=== PATIENT | male | born 1990 | race Caucasian/White ===

== ENCOUNTER 2021-03-08 14:59 | Emergency (ER) | payer BC ==
[2021-03-08] MEDS ORDERED: Ketorolac 30 MG/ML SDV IVPUSH ONE (16:59)
--- NOTE | 2021-03-08 17:06 | EDM.PDOC ---
ED HPI GENERAL MEDICAL PROBLEM - General Chief Complaint: Abdominal Pain Stated Complaint: SIDE PAIN Time Seen by Provider: 03/08/21 16:33 Source of Information: Reports: Patient History Limitations: Reports: No Limitations - History of Present Illness INITIAL COMMENTS - FREE TEXT/NARRATIVE: 31-year-old male presents the emergency department today with complaints of right upper abdominal discomfort. Patient states that this started yesterday shortly after lunch. He states that it is a squeezing type of pain that does come and go. He states that at breakfast yesterday morning he did have a inSelly sausage type of sandwich and then for lunch had chicken and rice. He states that he developed right upper quadrant abdominal pain with associated nausea shortly after lunch and has not eaten anything since. He states he was able to sleep throughout the night as the pain had decreased however he did get up and go to the gym and when he got home from the gym today he states the pain progressively worsened. He denies any recent fever, chills, vomiting. He states that he did have some nausea associated with the abdominal discomfort and some diarrhea. States he is otherwise healthy. He states he does vape on occasion. Right Upper Abdomen Pain Score (Numeric/FACES): 4 - Related Data Allergies Allergy/AdvReac Type Severity Reaction Status Date / Time No Known Allergies Allergy Verified 03/08/21 16:27 Home Meds: Home Meds Fish Oil/[place]-3 Fatty Acids [Fish Oil 1,000 MG] 1 cap PO BID 03/08/21 [History] Glucosam/Chond/Collagen/Hyalur [Glucosamine Chondroitin] 1 cap PO BID 03/08/21 [History] diphenhydrAMINE HCL [Benadryl] 50 mg PO BEDTIME 03/08/21 [History] Past Medical History HEENT History: Reports: Impaired Vision, Other (See Below) Other HEENT History: seasonal nose bleeds, stigmatism--night driving, computer use--wears eyeglasses. Cardiovascular History: Reports: Hypertension Other Cardiovascular History: takes no meds. Respiratory History: Reports: Bronchitis, Recurrent - Infectious Disease History Infectious Disease History: Reports: Chicken Pox, Novel Coronavirus - Past Surgical History Musculoskeletal Surgical History: Reports: Other (See Below) Other Musculoskeletal Surgeries/Procedures:: L) shoulder repair, L) shoulder kept dislocating. Social & Family History - Caffeine Use Caffeine Use: Reports: Coffee, Energy Drinks - Recreational Drug Use Recreational Drug Use: No ED ROS GENERAL - Review of Systems Review Of Systems: Comprehensive ROS is negative, except as noted in HPI. ED EXAM, GI/ABD - Physical Exam Exam: See Below Exam Limited By: No Limitations General Appearance: Alert, WD/WN, No Apparent Distress Ears: Normal External Exam, Hearing Grossly Normal Nose: Normal Inspection Throat/Mouth: Normal Inspection, Normal Lips, Normal Voice, No Airway Compromise Head: Atraumatic, Normocephalic Neck: Normal Inspection, Supple Respiratory/Chest: No Respiratory Distress, Lungs Clear, Normal Breath Sounds, No Accessory Muscle Use, Chest Non-Tender Cardiovascular: Normal Peripheral Pulses, Regular Rate, Rhythm, No Edema, No Murmur GI/Abdominal Exam: Normal Bowel Sounds, Soft, No Distention, Tender (Right upper quadrant) (Male) Exam: Deferred Rectal (Males) Exam: Deferred Back Exam: Normal Inspection, Full Range of Motion Extremities: Normal Inspection, Normal Range of Motion, Non-Tender, No Pedal Edema, Normal Capillary Refill Neurological: Alert, Oriented, Normal Cognition Psychiatric: Normal Affect Skin Exam: Warm, Dry, Intact, Normal Color, No Rash Lymphatic: No Adenopathy Course - Vital Signs Text/Narrative:: Stated above patient presents with right upper quadrant abdominal discomfort that started yesterday just after lunch with associated nausea. Physical exam reveals right upper quadrant abdominal tenderness with deep palpation. Will obtain lab studies to include a CBC, CMP, magnesium, C-reactive protein, lipase and a GGT. We will also obtain a right upper quadrant abdominal ultrasound to rule out gallbladder issues. We will also order 30 of Toradol IV for discomfort. Last Recorded V/S: Last Vital Signs Temp 98.4 F 03/08/21 16:25 Pulse 68 03/08/21 16:25 Resp 16 03/08/21 16:25 BP 176/103 H 03/08/21 16:25 Pulse Ox 99 03/08/21 16:25 - Orders/Labs/Meds Orders: Active Orders 24 hr Category Date Time Status Sodium Chloride 0.9% [Saline Flush] Med 03/08/21 16:59 Active 10 ml FLUSH ASDIRECTED PRN Saline Lock Insert [OM.PC] Stat Oth 03/08/21 16:59 Ordered Medication Orders Sodium Chloride (Sodium Chloride 0.9% 10 Ml Syringe) 10 ml FLUSH ASDIRECTED PRN PRN Reason: Keep Vein Open Last Admin: 03/08/21 20:06 Dose: 10 ml Documented by: [email or web address] Admin: 03/08/21 17:34 Dose: 10 ml Documented by: BK Labs: Laboratory Tests 03/08/21 03/08/21 03/08/21 Range/Units 17:00 17:00 17:00 WBC 9.84 H (4.23-9.07) K/mm3 RBC 6.61 H (4.63-6.08) M/mm3 Hgb 17.0 (13.7-17.5) gm/dl Hct 52.5 H (40.1-51.0) % MCV 79.4 (79.0-92.2) fl MCH 25.7 (25.7-32.2) pg MCHC 32.4 (32.2-35.5) g/dl RDW Std Deviation 43.0 (35.1-43.9) fL Plt Count 286 (163-337) K/mm3 MPV 10.8 (9.4-12.3) fl Neut % (Auto) 70.4 H (34.0-67.9) % Lymph % (Auto) 22.5 (21.8-53.1) % [place] % (Auto) 5.3 (5.3-12.2) % Eos % (Auto) 0.6 L (0.8-7.0) Baso % (Auto) 1.1 (0.1-1.2) % Neut # (Auto) 6.93 H (1.78-5.38) K/mm3 Lymph # (Auto) 2.21 (1.32-3.57) K/mm3 [place] # (Auto) 0.52 (0.30-0.82) K/mm3 Eos # (Auto) 0.06 (0.04-0.54) K/mm3 Baso # (Auto) 0.11 H (0.01-0.08) K/mm3 Sodium 139 (136-145) mEq/L Potassium 4.1 (3.5-5.1) mEq/L Chloride 103 (98-107) mEq/L Carbon Dioxide 26 (21-32) mEq/L Anion Gap 14.1 (5-15) BUN 16 (7-18) mg/dL Creatinine 1.6 H (0.7-1.3) mg/dL Est Cr Clr Drug Dosing 78.49 mL/min Estimated GFR (MDRD) 51 (>60) mL/min BUN/Creatinine Ratio 10.0 L (14-18) Glucose 92 (70-99) mg/dL Calcium 9.3 (8.5-10.1) mg/dL Magnesium 1.9 (1.8-2.4) mg/dL Total Bilirubin 0.8 (0.2-1.0) mg/dL GGT 46 (15-85) U/L AST 47 H (15-37) U/L ALT 59 (16-63) U/L Alkaline Phosphatase 59 (46-116) U/L C-Reactive Protein < 0.2 (<1.0) mg/dL Total Protein 8.5 H (6.4-8.2) g/dl Albumin 4.5 (3.4-5.0) g/dl Globulin 4.0 gm/dL Albumin/Globulin Ratio 1.1 (1-2) Lipase 108 (73-393) U/L Meds: Medications Generic Name Dose Route Start Last Admin Trade Name Freq PRN Reason Stop Dose Admin Sodium Chloride 10 ml 03/08/21 16:59 03/08/21 20:06 Sodium Chloride 0.9% 10 Ml Syringe FLUSH 10 ml ASDIRECTED PRN Administration Keep Vein Open Discontinued Medications Generic Name Dose Route Start Last Admin Trade Name Freq PRN Reason Stop Dose Admin Diatrizoate Meglum/Diatrizoate Sod 45 ml 03/08/21 19:54 03/08/21 20:01 Diatrizoate Meglumine/Diatrizoate Sodium 37% 120 Ml Bottle PO 03/08/21 19:55 1 bottle ONETIME ONE Administration Hydromorphone HCl 0.5 mg 03/08/21 18:30 03/08/21 18:50 Hydromorphone 0.5 Mg/0.5 Ml Syringe IVPUSH 03/08/21 18:31 0.5 mg ONETIME ONE Administration Sodium Chloride 1,000 mls @ 999 mls/hr 03/08/21 18:30 03/08/21 18:51 Normal Saline IV 03/08/21 19:30 999 mls/hr ONETIME ONE Administration Iopamidol 100 ml 03/08/21 19:54 03/08/21 20:06 Iopamidol 612 Mg/Ml 100 Ml Bottle IVPUSH 03/08/21 19:55 100 ml ONETIME ONE Administration Iopamidol 40 ml 03/08/21 19:55 03/08/21 20:06 Iopamidol 612 Mg/Ml 50 Ml Sdv IVPUSH 03/08/21 19:56 25 ml ONETIME ONE Administration Ketorolac Tromethamine 30 mg 03/08/21 16:59 03/08/21 17:31 Ketorolac 30 Mg/Ml Sdv IVPUSH 03/08/21 17:00 30 mg ONETIME ONE Administration - Re-Assessments/Exams Free Text/Narrative Re-Assessment/Exam: 03/08/21 18:27 Hematology reveals a WBC of 9.84, hemoglobin 17.0, hematocrit 52.5, platelet count 286 Chemistry reveals a sodium of 139, potassium 4.1, anion gap 14.1, BUN 16, creatinine 1.6, glucose 92, magnesium 1.9, GGT 46, AST 47, ALT 59, C-reactive protein 0.2 Radiologist impression Limited abdominal ultrasound: Pancreas is not completely seen. Visualized portion of the pancreas appears within normal limits. Liver shows no focal abnormality. Gallbladder contains no shadowing gallstones. No gallbladder wall thickening or biliary duct dilation is seen. Right kidney shows no hydronephrosis or mass and has a length of 12.2 cm. Proximal aorta measures 2.7 cm in AP dimension. Inferior vena cava is patent. Main portal vein shows normal hepatopetal flow. 03/08/21 18:32 Patient states that pain has progressively moved down to his right lower quadrant and has become fairly constant. He states that Toradol did not decrease his pain whatsoever. Discussed case with Dr. Bales who recommends CT the abdomen and pelvis. We will place an order for CT scan and hydrate the patient with a liter of normal saline and medicated with Dilaudid for pain. 03/08/21 20:[address] of the abdomen and pelvis: Visualized lung bases show nothing acute. Liver contains no focal abnormality. Gallbladder contains no calcified gallstones. Spleen appears within normal limits. Adrenal gland shows no nodule. Pancreas shows no abnormality. Kidney shows symmetric contrast enhancement. Several very minimal low-density findings are seen within the cortex of both kidneys compatible with minimal cyst. Abdominal aorta shows no aneurysm. No retroperitoneal adenopathy is seen. Appendix is seen which is normal in size. No pelvic mass or adenopathy is seen. No free fluid or inflammatory changes appreciated. Delayed images show contrast within both distal ureters and within the bladder. Bone window settings were reviewed which show no acute osseous finding. Minimal degenerative changes scattered within the spine. Impression: 1. Several findings which are believed to be incidental for the patient's age. 2. Nothing acute is appreciated on CT study of the abdomen and pelvis. 03/08/21 20:50 Discussed the case with the surgeon on-call, , and he recommends allowing the patient to be discharged home. He states that if the patient still has discomfort over the next 1 to 2 days that they should follow-up with him at his clinic. 03/08/21 20:[address] Lay is recommendations with the patient and his and they verbalized understanding. Patient has given strict return precautions. Departure - Departure Time of Disposition: 20:58 Disposition: Home, Self-Care 01 Condition: Good Clinical Impression: Abdominal pain Qualifiers: Abdominal location: right upper quadrant Qualified Code(s): R10.11 - Right upper quadrant pain - Discharge Information Referrals: PCP,None [Primary Care Provider] - Forms: ED Department Discharge Additional Instructions: You were seen in the emergency department with complaints of right upper abdominal pain which then progressed to mid/lower abdominal pain on the right side. Lab studies were completed which were essentially unremarkable however your white blood cell count was minimally elevated. Creatinine level was 1.6 which is elevated. Ultrasound of your abdomen was completed to rule out gallbladder disease and this was negative. CT scan of the abdomen pelvis were completed and were unremarkable. There is no issues with your gallbladder or appendix or any other organs at this time. Discussed the case with , the surgeon on-call, and he recommends sending you home and following up with him in his clinic should you continue to have the discomfort over the course of the next 2 days or so. If you are abdominal pain becomes more severe or you develop fever, chills, and vomiting you should return to the emergency department. Recommend clear liquid diet for the next 24 hours and then advance to a bland diet as tolerated. Be sure to drink plenty of fluids as you did receive CT scan dye while in the emergency department. You will want to make sure that your kidneys are well hydrated and flushed. Sepsis Event Note (ED) - Evaluation Sepsis Screening Result: No Definite Risk - Focused Exam Vital Signs: Vital Signs Temp Pulse Resp BP Pulse Ox 03/08/21 16:25 98.4 F 68 16 176/103 H 99 - My Orders Last 24 Hours: My Active Orders 03/08/21 16:59 Sodium Chloride 0.9% [Saline Flush] 10 ml FLUSH ASDIRECTED PRN Saline Lock Insert [OM.PC] Stat - Assessment/Plan Last 24 Hours: My Active Orders 03/08/21 16:59 Sodium Chloride 0.9% [Saline Flush] 10 ml FLUSH ASDIRECTED PRN Saline Lock Insert [OM.PC] Stat
[2021-03-08] MEDS: Sodium Chloride 0.9% 10 ML Syringe FLUSH PRN ×2 (17:34→20:06)
--- NOTE | 2021-03-08 18:11 | US ---
Limited abdominal ultrasound: Multiple real-time images of the upper right abdomen were obtained. Comparison: No prior abdominal imaging is available. Pancreas is not completely seen. Visualized portion of the pancreas appears within normal limits. Liver shows no focal abnormality. Gallbladder contains no shadowing gallstones. No gallbladder wall thickening or biliary duct dilatation is seen. Right kidney shows no hydronephrosis or mass and has a length of 12.2 cm. Proximal aorta measures 2.7 cm in AP dimension. Inferior vena cava is patent. Main portal vein shows normal hepatopedal flow. Impression: 1. Nothing acute is seen on right upper quadrant abdominal ultrasound. Diagnostic code #1
[2021-03-08] MEDS ORDERED: Sodium Chloride 0.9% 1,000 ML IV ONE (18:30)
[2021-03-08] MEDS ORDERED: HYDROmorphone 0.5 MG/0.5 ML Syringe IVPUSH ONE (18:30)
[2021-03-08] MEDS ORDERED: Diatrizoate Meglumine/Diatrizoate Sodium 37% 120 ML Bottle PO ONE (19:54)
[2021-03-08] MEDS ORDERED: Iopamidol 612 MG/ML 100 ML Bottle IVPUSH ONE (19:54)
[2021-03-08] MEDS ORDERED: Iopamidol 612 MG/ML 50 ML SDV IVPUSH ONE (19:55)
--- NOTE | 2021-03-08 20:31 | CT ---
CT abdomen and pelvis Technique: Multiple axial sections were obtained from above the dome the diaphragm inferiorly through the pubic symphysis. Intravenous and oral contrast was utilized. Delayed images were obtained to the bladder. Reconstructed coronal and sagittal images were obtained. Comparison: Prior right upper quadrant abdominal ultrasound performed earlier on the same day (5:38 PM). Findings: Visualized lung bases show nothing acute. Liver contains no focal abnormality. Gallbladder contains no calcified gallstones. Spleen appears within normal limits. Adrenal glands show no nodule. Pancreas shows no abnormality. Kidneys show symmetric contrast enhancement. Several very minimal low density findings are seen within the cortex of both kidneys compatible with minimal cysts. Abdominal aorta shows no aneurysm. No retroperitoneal adenopathy is seen. Appendix is seen which is normal in size. No pelvic mass or adenopathy is seen. No free fluid or inflammatory change is appreciated. Delayed images show contrast within both distal ureters and within the bladder. Bone window settings were reviewed which show no acute osseous finding. Minimal degenerative change is scattered within the spine. Impression: 1. Several findings which are believed to be incidental for the patient's age. 2. Nothing acute is appreciated on CT study of the abdomen and pelvis. Diagnostic code #1
== END 2021-03-08 21:54 | disposition home or self-care (01) ==
LOC: JD.ED 14:59
DX: R10.11 Right upper quadrant pain (principal); I10 Essential (primary) hypertension; Z86.16 Personal history of COVID-19; Z79.899 Other long term (current) drug therapy
CPT/HCPCS: 36415; 74177; 76705; 80053; 82977; 83690; 83735; 85025; 86140; 96374; 96375; 99284; J1170; J1885; J7030; Q9963; Q9967

== ENCOUNTER 2022-02-15 17:17 | Emergency (ER) | payer BC ==
[2022-02-15] MEDS ORDERED: Sodium Chloride 0.9% 10 ML Syringe FLUSH PRN (17:54)
== END 2022-02-15 19:15 | disposition home or self-care (01) ==
LOC: JD.ED 17:17
DX: R07.89 Other chest pain (principal); I10 Essential (primary) hypertension; Z86.16 Personal history of COVID-19
CPT/HCPCS: 36415; 71275; 84484; 93005; 99285; J3490

== ENCOUNTER 2022-07-11 10:25 | Day surgery (SDC) | payer BC ==
[~2022-07-11 10:25] MED LIST: Lactated Ringers 1,000 ML IV SCH; Lidocaine 1%/Sod Bicarbonate in NS 8.4% 1 ML Syringe IDERM PRN; Sodium Chloride 0.9% 10 ML Syringe FLUSH PRN; Sodium Chloride 0.9% 10 ML Syringe FLUSH SCH
[2022-07-11] MEDS ORDERED: Lidocaine 1% 4 ML ONE (11:03)
[2022-07-11] MEDS ORDERED: Propofol 200 MG/20 ML SDV ONE ×2 (11:03→11:21)
[2022-07-11] MEDS ORDERED: Midazolam 1 MG/ML 2 ML SDV ONE (11:26)
[2022-07-11] MEDS ORDERED: Lactated Ringers 1,000 ML ONE (11:30)
== END 2022-07-11 11:54 | disposition home or self-care (01) ==
LOC: JD.SDS 10:25
PROVIDERS: ATTEND Surgery
DX: K44.9 Diaphragmatic hernia without obstruction or gangrene (principal); K21.9 Gastro-esophageal reflux disease without esophagitis; I10 Essential (primary) hypertension; E78.00 Pure hypercholesterolemia, unspecified; G47.33 Obstructive sleep apnea (adult) (pediatric); F17.210 Nicotine dependence, cigarettes, uncomplicated; Z80.0 Family history of malignant neoplasm of digestive organs; Z79.899 Other long term (current) drug therapy
CPT/HCPCS: 43239; J2704; J7120; 00731; J2250; J3490